=== PATIENT | male | born 1955 | race Caucasian/White ===

== ENCOUNTER 2017-04-08 08:47 | Emergency (ER) | payer MEDICAID ==
[2017-04-08 09:10] VITALS: BP 125/82
== END 2017-04-08 11:35 | disposition home or self-care (01) ==
LOC: ED 08:47
DX: H66.91 Otitis media, unspecified, right ear (principal); E78.00 Pure hypercholesterolemia, unspecified

== ENCOUNTER 2018-06-05 17:38 | Emergency (ER) | payer MEDICAID ==
[~2018-06-05] VITALS: Ht 162.6 cm; Wt 58.0 kg
[2018-06-05 19:59] VITALS: BP 125/83
== END 2018-06-05 19:59 | disposition home or self-care (01) ==
LOC: ED 17:38
DX: R07.81 Pleurodynia (principal); E78.00 Pure hypercholesterolemia, unspecified; W01.0XXA Fall on same level from slipping, tripping and stumbling without subsequent striking against object, initial encounter; Y93.89 Activity, other specified; Y92.89 Other specified places as the place of occurrence of the external cause; Y99.8 Other external cause status
CPT/HCPCS: J1885

== ENCOUNTER 2019-01-21 12:58 | Emergency (ER) | payer MEDICAID ==
[~2019-01-21] VITALS: Ht 165.1 cm; Wt 59.4 kg
[2019-01-21 15:09] LABS: BASOPHIL % 0.2 % (0-2); PLATELET COUNT 297 x10^3mcL (130-400); RED CELL DISTRIBUTION WIDTH 14.1 % (11.5-14.5)
[2019-01-21 15:20] LABS: CALCIUM 8.9 mg/dL (8.5-10.1); CARBON DIOXIDE 27.4 mmol/L (21-32); CHLORIDE SERUM 97 mmol/L (98-107); CREATININE SERUM 0.6 mg/dL (0.7-1.3); GFR1 > 60 mL/min; GLUCOSE SERUM 101 mg/dL (74-106); POTASSIUM SERUM 4.4 mmol/L (3.5-5.1); SODIUM SERUM 130 mmol/L (136-145)
[2019-01-21 15:25] LABS: ALBUMIN 3.7 g/dL (3.4-5.0); ALKALINE PHOSPHATASE 118 U/L (46-116); ALT/SGPT 28 U/L (16-63); AST/SGOT 22 U/L (15-37); BILIRUBIN TOTAL 0.2 mg/dL (0.20-1.00); TOTAL PROTEIN, SERUM 7.8 g/dL (6.4-8.2)
[2019-01-21 16:10] VITALS: BP 137/90
== END 2019-01-21 16:10 | disposition home or self-care (01) ==
LOC: ED 12:58
PROVIDERS: Emergency Medicine
DX: S29.8XXA Other specified injuries of thorax, initial encounter (principal); E78.00 Pure hypercholesterolemia, unspecified; W11.XXXA Fall on and from ladder, initial encounter; Y93.89 Activity, other specified; Y92.89 Other specified places as the place of occurrence of the external cause; Y99.8 Other external cause status
CPT/HCPCS: 36415; J1885